=== PATIENT | female | born 1930 | race Two or more races ===

== ENCOUNTER → 2016-09-14 | Outpatient (CLI) | payer OTHER, MEDICAID ==
[~2016-09-14] MED LIST: ATEN-60 OR; BENA20TA4 OR; DONE5TAB11 OR; GLYB5TAB8 OR; ISOS60TA24 OR; LEVO50TA7 OR; METF500T OR; POTA10TA34 OR; RANO500T2 OR; SIMV-13 OR
[2016-09-14 07:41] LABS: Basophils # (auto) 0 uL; Basophils % (auto) 0.6 % (0.0-2.0); Eosinophils # (auto) 0.1 uL; Eosinophils % (auto) 1.5 % (0.0-7.0); Hematocrit 46.6 % (36.0-46.0); Hemoglobin 15.9 g/dL (12.2-16.2); Lymphocytes # (auto) 1.5 uL; Lymphocytes % (auto) 25.4 % (10.0-50.0); Mean Corpuscular Hemoglobin 31.4 pg (28.0-32.0); Mean Corpuscular Hgb Conc. 34.1 g/dL (32.0-36.0); Mean Corpuscular Volume 91.9 fL (80.0-100.0); Mean Platelet Volume 8.8 fL (7.4-10.4); Monocytes # (auto) 0.4 uL; Neutrophils # (auto) 3.8 uL; Neutrophils % (auto) 65.5 % (37.0-80.0); Platelet Count (auto) 216 10^3/uL (140-450); Red Cell Distribution Width 14.1 % (11.6-16.0); White Blood Cell 5.8 10^3/uL (4.4-10.8)
[2016-09-14 08:12] LABS: Urine Bilirubin Negative (Negative); Urine Blood Negative /uL (Negative); Urine Color Yellow (Yellow); Urine Glucose Normal (Normal); Urine Ketone Negative (Negative); Urine Nitrite Negative (Negative); Urine RBC 1 /hpf (0 - 4); Urine Squamous Epithelial Cell FEW /hpf (<5); Urine Urobilinogen Normal (Negative); Urine pH 6.5 (5.0-8.0)
[2016-09-14 08:14] LABS: Albumin 3.8 g/dL (3.4-5.0); Potassium 3.7 mmol/L (3.5-5.1); Total Protein 7.8 g/dL (6.4-8.2)
== END | disposition home or self-care (01) ==
LOC: LAB 06:54
PROVIDERS: ATTEND Internal Medicine
DX: E11.21 Type 2 diabetes mellitus with diabetic nephropathy (principal); I10 Essential (primary) hypertension; I48.2 Chronic atrial fibrillation
CPT/HCPCS: 36415; 80053; 80061; 81001; 82043; 82306; 83036; 84443; 85025

== ENCOUNTER → 2017-04-05 | Outpatient (CLI) | payer OTHER, MEDICAID ==
[~2017-04-05] MED LIST changes: +BENA20TA14 OR; -BENA20TA4 OR
[2017-04-05 07:27] LABS: Basophils # (auto) 0 uL; Basophils % (auto) 0.7 % (0.0-2.0); Eosinophils # (auto) 0.1 uL; Hematocrit 46.5 % (36.0-46.0); Hemoglobin 15.6 g/dL (12.2-16.2); Lymphocytes # (auto) 1.3 uL; Lymphocytes % (auto) 21.5 % (10.0-50.0); Mean Corpuscular Hemoglobin 31.2 pg (28.0-32.0); Mean Corpuscular Hgb Conc. 33.6 g/dL (32.0-36.0); Mean Corpuscular Volume 92.9 fL (80.0-100.0); Mean Platelet Volume 7.8 fL (6.9-10.8); Monocytes # (auto) 0.5 uL; Monocytes % (auto) 8.8 % (0.0-12.0); Neutrophils # (auto) 3.9 uL; Platelet Count (auto) 193 10^3/uL (140-450); Red Cell Distribution Width 14.1 % (11.8-14.3); White Blood Cell 5.8 10^3/uL (4.4-10.8)
[2017-04-05 08:45] LABS: Albumin 3.7 g/dL (3.4-5.0); BUN/Creatinine Ratio 16.5; Bilirubin, Total 0.9 mg/dL (0.2-1.0); Calcium 9.9 mg/dL (8.5-10.1); Potassium 4.7 mmol/L (3.5-5.1); Total Protein 7.5 g/dL (6.4-8.2)
== END | disposition home or self-care (01) ==
LOC: LAB 07:04
PROVIDERS: ATTEND Physician Assistant
DX: E03.9 Hypothyroidism, unspecified (principal); E78.2 Mixed hyperlipidemia; E55.9 Vitamin D deficiency, unspecified; F99 Mental disorder, not otherwise specified; R41.3 Other amnesia
CPT/HCPCS: 36415; 80053; 80061; 82306; 84439; 84443; 84480; 85025

== ENCOUNTER → 2017-04-12 | Outpatient (CLI) | payer OTHER, MEDICAID | END | disposition home or self-care (01) | LOC: LAB 08:09 | PROVIDERS: ATTEND Psychiatry & Neurology Neurology | DX: G30.9 Alzheimer's disease, unspecified (principal) | CPT/HCPCS: 82607; 82746 ==

== ENCOUNTER 2018-10-28 12:19 | Emergency (ER) | payer OTHER, MEDICAID ==
[~2018-10-28] VITALS: Ht 157.5 cm; Wt 59.0 kg
[~2018-10-28 12:19] MED LIST changes: -POTA10TA34 OR; +POTA1TAB61 OR
[2018-10-28 12:27] VITALS: BP 112/66
== END 2018-10-28 16:00 | disposition home or self-care (01) ==
LOC: ER 12:19
DX: S92.352A Displaced fracture of fifth metatarsal bone, left foot, initial encounter for closed fracture (principal); S82.831A Other fracture of upper and lower end of right fibula, initial encounter for closed fracture; M11.241 Other chondrocalcinosis, right hand; M18.9 Osteoarthritis of first carpometacarpal joint, unspecified; Z86.73 Personal history of transient ischemic attack (TIA), and cerebral infarction without residual deficits; E11.9 Type 2 diabetes mellitus without complications; E78.5 Hyperlipidemia, unspecified; I10 Essential (primary) hypertension; Z79.899 Other long term (current) drug therapy; W10.8XXA Fall (on) (from) other stairs and steps, initial encounter; Y93.89 Activity, other specified; Y92.098 Other place in other non-institutional residence as the place of occurrence of the external cause; Y99.8 Other external cause status
CPT/HCPCS: 29515; 73110; 73610; 73630; 93005

== ENCOUNTER 2018-11-26 08:07 | Inpatient (IN) | payer OTHER, MEDICAID ==
[~2018-11-26] VITALS: Ht 157.5 cm; Wt 54.4 kg
[2018-11-26 08:53] LABS: Basophils # (auto) 0 uL; Basophils % (auto) 0.8 % (0.0-2.0); Eosinophils # (auto) 0.1 uL; Eosinophils % (auto) 2.4 % (0.0-7.0); Lymphocytes # (auto) 1.4 uL; Mean Corpuscular Volume 94.1 fL (80.0-100.0); Monocytes # (auto) 0.4 uL; Monocytes % (auto) 7.5 % (0.0-12.0); Neutrophils # (auto) 3.3 uL; Neutrophils % (auto) 63.3 % (37.0-80.0); Nucleated Red Blood Cells % 0.1 %; Platelet Count (auto) 155 10^3/uL (140-450); Red Blood Cells 4.68 10^6/uL (4.0-5.20); Red Cell Distribution Width 14.2 % (11.8-14.3); White Blood Cell 5.2 10^3/uL (4.4-10.8)
[2018-11-26 09:21] LABS: Alanine Aminotransferase 10 U/L (13-56); Albumin 3.5 g/dL (3.4-5.0); Anion Gap 10 (5-15); Aspartate Aminotransferase 19 U/L (15-37); Blood Urea Nitrogen 17 mg/dL (7-18); Calcium 10.3 mg/dL (8.5-10.1); Carbon Dioxide 30 mmol/L (21-32); Chloride 101 mmol/L (98-107); GFR African American 58 mL/min; GFR Non-African American 48 mL/min; Glucose 121 mg/dL (74-106); Potassium 3.5 mmol/L (3.5-5.1); Sodium 141 mmol/L (136-145)
[2018-11-26 09:26] LABS: Alkaline Phosphatase 71 U/L (45-117); Bilirubin, Total 0.6 mg/dL (0.2-1.0); Total Protein 7.1 g/dL (6.4-8.2)
[2018-11-26 09:58] LABS: Urine Bacteria FEW /hpf (None Seen); Urine Blood TRACE /uL (Negative); Urine Hyaline Cast FEW /lpf (0 - 2); Urine Mucus FEW (None Seen); Urine Specific Gravity 1.021 (1.001-1.035); Urine WBC 179 /hpf (0 - 5)
[2018-11-26] MEDS ORDERED: hydrALAZINE HCL 20 MG/ML VL IV PRN (11:00)
[2018-11-26] MEDS ORDERED: MORPHINE SULF INJ 2 MG/ML SYRINGE 1ML IV PRN (11:00)
[2018-11-26] MEDS ORDERED: NITROGLYCERIN 0.4 MG SL TAB SL PRN (11:00)
[2018-11-26] MEDS ORDERED: DEXTROSE (50%) 50ML SYRG IV PRN (11:00)
[2018-11-26] MEDS ORDERED: FAMOTIDINE 20 MG TAB PO ONE (11:15)
[2018-11-26] MEDS ORDERED: SODIUM CHLORIDE 0.9% 1,000 ML IV ONE (11:15)
[2018-11-26] MEDS ORDERED: cefTRIAXone 1GM/50ML D5W 50 ML IV ONE (11:15)
[2018-11-26] MEDS ORDERED: LISINOPRIL 10 MG TAB PO ONE (11:15)
[2018-11-26] MEDS ORDERED: DOCUSATE SOD 100 MG CAP PO ONE (11:15)
[2018-11-26] MEDS ORDERED: ASPirin-EC 81 mg tab PO ONE (11:15)
[2018-11-26] MEDS ORDERED: LEVOTHYROXINE SODIUM 50 MCG TAB PO ONE (11:15)
[2018-11-26] MEDS ORDERED: POTASSIUM CHL 20 Meq TABLET PO ONE (12:00)
[2018-11-26] MEDS ORDERED: DOPamine 1600MCG/ML D5W 250 ML IV SCH (12:00)
[2018-11-26] MEDS: ACCU-CHEK COMFORT CURVE STRIP VI SCH ×3 (12:06→21:23)
[2018-11-26] MEDS: InsuLIN REG 1unit/0.01ml Soln (100units/ml) SC SCH ×3 (12:07→21:23)
[2018-11-26 17:20] VITALS: BP 139/72
[2018-11-26] MEDS: ATORVASTATIN 20 MG TAB PO SCH (21:19)
[2018-11-26] MEDS: DONEPEZIL HYDROCHLORIDE 5 MG TAB PO SCH (21:20)
[2018-11-26] MEDS: DOCUSATE SOD 100 MG CAP PO SCH (21:20)
[2018-11-26] MEDS: ACETAMINOPHEN 500 MG TAB PO PRN (21:21)
[2018-11-26 22:00] VITALS: BP 104/57
[2018-11-26] MEDS: HYDROcodone-ACET 5/325MG TAB PO PRN (22:10)
[2018-11-26 23:54] VITALS: BP 101/73
[2018-11-26] MEDS: ONDANSETRON HCL 4 MG/2 ML VIAL IV PRN (23:54)
[2018-11-27] VITALS (7 sets, daily range): BP systolic 90–146; BP diastolic 52–75
[2018-11-27 05:46] LABS: INR 1.04 (0.9-1.15); Partial Thromboplastin Time 26.4 sec (23.64-32.05)
[2018-11-27 05:47] LABS: Basophils # (auto) 0 uL; Basophils % (auto) 0.6 % (0.0-2.0); Eosinophils # (auto) 0 uL; Eosinophils % (auto) 0.4 % (0.0-7.0); Hematocrit 43.1 % (36.0-46.0); Hemoglobin 14.7 g/dL (12.2-16.2); Lymphocytes # (auto) 0.9 uL; Lymphocytes % (auto) 14.1 % (10.0-50.0); Mean Corpuscular Hemoglobin 31.9 pg (28.0-32.0); Mean Corpuscular Volume 93.6 fL (80.0-100.0); Monocytes # (auto) 0.5 uL; Monocytes % (auto) 8.2 % (0.0-12.0); Neutrophils # (auto) 4.8 uL; Neutrophils % (auto) 76.7 % (37.0-80.0); Nucleated Red Blood Cells % 0.1 %; Platelet Count (auto) 164 10^3/uL (140-450); Red Blood Cells 4.61 10^6/uL (4.0-5.20); Red Cell Distribution Width 14.1 % (11.8-14.3); White Blood Cell 6.3 10^3/uL (4.4-10.8)
[2018-11-27] MEDS: ACCU-CHEK COMFORT CURVE STRIP VI SCH ×4 (05:55→23:12)
[2018-11-27] MEDS: InsuLIN REG 1unit/0.01ml Soln (100units/ml) SC SCH ×4 (05:55→22:00)
[2018-11-27 06:09] LABS: Potassium 3.9 mmol/L (3.5-5.1)
[2018-11-27 06:11] LABS: BUN/Creatinine Ratio 13.8; Calcium 9.5 mg/dL (8.5-10.1)
[2018-11-27 06:22] LABS: Cholesterol 331 mg/dL (< 200); HDL Cholesterol 66 mg/dL (40-59); LDL Cholesterol 223 mg/dL (< 100); Triglycerides 144 mg/dL (< 150)
[2018-11-27] MEDS: DOPamine 1600MCG/ML D5W 250 ML IV SCH ×2 (07:05→14:52)
[2018-11-27] MEDS: cefTRIAXone 1GM/50ML D5W 50 ML IV SCH (09:36)
[2018-11-27] MEDS: ENOXAPARIN SOD 40 MG/0.4 ML SYRINGE SC SCH (09:36)
[2018-11-27] MEDS: LEVOTHYROXINE SODIUM 50 MCG TAB PO SCH (09:37)
[2018-11-27] MEDS: DOCUSATE SOD 100 MG CAP PO SCH ×2 (09:37→22:02)
[2018-11-27] MEDS: ASPirin-EC 81 mg tab PO SCH (09:37)
[2018-11-27] MEDS: FAMOTIDINE 20 MG TAB PO SCH (09:37)
[2018-11-27] MEDS ORDERED: ADENOSINE 44 MG in GIVE UN-DILUTED 0 ML IV STA ×2 (09:50→11:02)
[2018-11-27] MEDS: LISINOPRIL 10 MG TAB PO SCH (10:00)
[2018-11-27] MEDS ORDERED: DOBUTamine 1000MCG/ML 100 ML IV STA (10:02)
[2018-11-27] MEDS: DONEPEZIL HYDROCHLORIDE 5 MG TAB PO SCH (22:02)
[2018-11-27] MEDS: ATORVASTATIN 20 MG TAB PO SCH (22:03)
[2018-11-27] MEDS: ACETAMINOPHEN 500 MG TAB PO PRN (22:03)
[2018-11-27] MEDS: HYDROcodone-ACET 5/325MG TAB PO PRN (22:04)
[2018-11-27] MEDS: ONDANSETRON HCL 4 MG/2 ML VIAL IV PRN (22:04)
[2018-11-28 05:00] VITALS: BP 129/66
[2018-11-28] MEDS: InsuLIN REG 1unit/0.01ml Soln (100units/ml) SC SCH ×4 (06:15→21:14)
[2018-11-28] MEDS: ACCU-CHEK COMFORT CURVE STRIP VI SCH ×4 (06:15→21:09)
[2018-11-28 08:00] VITALS: BP 151/80
[2018-11-28] MEDS: DOCUSATE SOD 100 MG CAP PO SCH ×2 (10:00→21:09)
[2018-11-28] MEDS: ENOXAPARIN SOD 40 MG/0.4 ML SYRINGE SC SCH (10:00)
[2018-11-28] MEDS: cefTRIAXone 1GM/50ML D5W 50 ML IV SCH (10:00)
[2018-11-28] MEDS: LISINOPRIL 10 MG TAB PO SCH (10:01)
[2018-11-28] MEDS: LEVOTHYROXINE SODIUM 50 MCG TAB PO SCH (10:01)
[2018-11-28] MEDS: FAMOTIDINE 20 MG TAB PO SCH (10:01)
[2018-11-28] MEDS: ASPirin-EC 81 mg tab PO SCH (10:02)
[2018-11-28 11:04] LABS: Calcium 9.8 mg/dL (8.5-10.1); Potassium 3.7 mmol/L (3.5-5.1)
[2018-11-28 13:00] VITALS: BP 111/65
[2018-11-28 17:00] VITALS: BP 96/63
[2018-11-28] MEDS: DONEPEZIL HYDROCHLORIDE 5 MG TAB PO SCH (21:08)
[2018-11-28] MEDS: ATORVASTATIN 20 MG TAB PO SCH (21:08)
[2018-11-28] MEDS: ACETAMINOPHEN 500 MG TAB PO PRN (21:09)
[2018-11-28] MEDS: HYDROcodone-ACET 5/325MG TAB PO PRN (21:09)
[2018-11-28 22:00] VITALS: BP 124/83
[2018-11-29] MEDS: SODIUM CHLORIDE 0.9% 1,000 ML IV SCH
[2018-11-29] MEDS: DOPamine 1600MCG/ML D5W 250 ML IV SCH (02:02)
[2018-11-29 05:00] VITALS: BP 116/73
[2018-11-29] MEDS: InsuLIN REG 1unit/0.01ml Soln (100units/ml) SC SCH ×4 (05:50→21:44)
[2018-11-29] MEDS: ACCU-CHEK COMFORT CURVE STRIP VI SCH ×4 (05:51→21:22)
[2018-11-29 08:00] VITALS: BP 132/78
[2018-11-29] MEDS: HYDROcodone-ACET 5/325MG TAB PO PRN ×2 (09:35→16:44)
[2018-11-29] MEDS: cefTRIAXone 1GM/50ML D5W 50 ML IV SCH (09:53)
[2018-11-29] MEDS: FAMOTIDINE 20 MG TAB PO SCH (09:54)
[2018-11-29] MEDS: ASPirin-EC 81 mg tab PO SCH (09:54)
[2018-11-29] MEDS: DOCUSATE SOD 100 MG CAP PO SCH ×2 (09:55→21:21)
[2018-11-29] MEDS: LISINOPRIL 10 MG TAB PO SCH (09:55)
[2018-11-29] MEDS: LEVOTHYROXINE SODIUM 50 MCG TAB PO SCH (09:55)
[2018-11-29] MEDS: ENOXAPARIN SOD 40 MG/0.4 ML SYRINGE SC SCH (09:55)
[2018-11-29 13:00] VITALS: BP 112/73
[2018-11-29 17:00] VITALS: BP 130/70
[2018-11-29] MEDS: TEMAZEPAM 15 MG CAP PO PRN (21:21)
[2018-11-29] MEDS: DONEPEZIL HYDROCHLORIDE 5 MG TAB PO SCH (21:22)
[2018-11-29] MEDS: ATORVASTATIN 20 MG TAB PO SCH (21:22)
[2018-11-29 21:46] VITALS: BP 117/74
[2018-11-30] VITALS (7 sets, daily range): BP systolic 111–145; BP diastolic 59–84
[2018-11-30] MEDS: DOPamine 1600MCG/ML D5W 250 ML IV SCH (03:09)
[2018-11-30] MEDS: InsuLIN REG 1unit/0.01ml Soln (100units/ml) SC SCH ×4 (06:22→22:00)
[2018-11-30] MEDS: ACCU-CHEK COMFORT CURVE STRIP VI SCH ×4 (06:23→22:00)
[2018-11-30] MEDS: SODIUM CHLORIDE 0.9% 1,000 ML IV SCH ×2 (07:43→23:15)
[2018-11-30] MEDS ORDERED: cefTRIAXone 1GM/50ML D5W 50 ML IV SCH (09:00)
[2018-11-30] MEDS: HYDROcodone-ACET 5/325MG TAB PO PRN (10:00)
[2018-11-30] MEDS: ENOXAPARIN SOD 40 MG/0.4 ML SYRINGE SC SCH (10:00)
[2018-11-30] MEDS: ASPirin-EC 81 mg tab PO SCH (10:27)
[2018-11-30] MEDS: DOCUSATE SOD 100 MG CAP PO SCH ×2 (10:27→23:07)
[2018-11-30] MEDS: LISINOPRIL 10 MG TAB PO SCH (10:28)
[2018-11-30] MEDS: FAMOTIDINE 20 MG TAB PO SCH (10:28)
[2018-11-30] MEDS: LEVOTHYROXINE SODIUM 50 MCG TAB PO SCH (10:28)
[2018-11-30] MEDS: ONDANSETRON HCL 4 MG/2 ML VIAL IV PRN (13:08)
[2018-11-30] MEDS ORDERED: IOHEXOL 350 MG/ML 100ML IJ ONE (14:55)
[2018-11-30] MEDS ORDERED: LIDOCAINE 2%HCL (LOCAL ANESTH.) INJ 20ML MDV ONE (14:55)
[2018-11-30] MEDS ORDERED: ANGIOMAX 250 MG VIAL IV ONE (15:01)
[2018-11-30] MEDS ORDERED: SODIUM CHL 0.9% 50 ML ONE (15:01)
[2018-11-30] MEDS ORDERED: MIDAZOLAM HCL 1MG/1ML-2 ML VIAL ONE (15:01)
[2018-11-30] MEDS ORDERED: fentaNYL CITRATE 100 MCG/2 ML VL ONE (15:01)
[2018-11-30] MEDS ORDERED: IODIXANOL 320MG/ML 100ML BTL IV ONE (15:03)
[2018-11-30] MEDS ORDERED: CLOPIDOGREL 300 MG TAB ONE (15:38)
[2018-11-30 16:47] LABS: Basophils # (auto) 0.1 uL; Basophils % (auto) 0.9 % (0.0-2.0); Eosinophils # (auto) 0.1 uL; Eosinophils % (auto) 1.8 % (0.0-7.0); Hematocrit 45.6 % (36.0-46.0); Hemoglobin 15.6 g/dL (12.2-16.2); Lymphocytes # (auto) 1.3 uL; Lymphocytes % (auto) 24.4 % (10.0-50.0); Mean Corpuscular Hgb Conc. 34.1 g/dL (32.0-36.0); Mean Corpuscular Volume 93.9 fL (80.0-100.0); Monocytes # (auto) 0.4 uL; Neutrophils # (auto) 3.5 uL; Neutrophils % (auto) 64.9 % (37.0-80.0); Nucleated Red Blood Cells % 0.1 %; Platelet Count (auto) 173 10^3/uL (140-450); Red Blood Cells 4.86 10^6/uL (4.0-5.20); Red Cell Distribution Width 14.2 % (11.8-14.3); White Blood Cell 5.3 10^3/uL (4.4-10.8)
[2018-11-30 17:08] LABS: INR 1.43 (0.9-1.15); Partial Thromboplastin Time 61.9 sec (23.64-32.05)
[2018-11-30 17:09] LABS: BUN/Creatinine Ratio 23.4; Calcium 9.1 mg/dL (8.5-10.1); Potassium 3.7 mmol/L (3.5-5.1)
[2018-11-30] MEDS: TEMAZEPAM 15 MG CAP PO PRN (23:06)
[2018-11-30] MEDS: ATORVASTATIN 20 MG TAB PO SCH (23:06)
[2018-11-30] MEDS: DONEPEZIL HYDROCHLORIDE 5 MG TAB PO SCH (23:06)
[2018-12-01 05:00] VITALS: BP 116/74
[2018-12-01] MEDS: InsuLIN REG 1unit/0.01ml Soln (100units/ml) SC SCH ×4 (06:42→21:42)
[2018-12-01 09:00] VITALS: BP 102/70
[2018-12-01] MEDS: DOPamine 1600MCG/ML D5W 250 ML IV SCH (09:18)
[2018-12-01] MEDS: FAMOTIDINE 20 MG TAB PO SCH (09:19)
[2018-12-01] MEDS: ASPirin-EC 81 mg tab PO SCH (09:19)
[2018-12-01] MEDS: DOCUSATE SOD 100 MG CAP PO SCH ×2 (09:19→21:41)
[2018-12-01] MEDS: LEVOTHYROXINE SODIUM 50 MCG TAB PO SCH (09:19)
[2018-12-01] MEDS: CLOPIDOGREL BISULFATE 75 MG TAB PO SCH (09:23)
[2018-12-01] MEDS: LISINOPRIL 10 MG TAB PO SCH (09:24)
[2018-12-01] MEDS: ACCU-CHEK COMFORT CURVE STRIP VI SCH ×4 (11:49→21:42)
[2018-12-01 13:00] VITALS: BP 112/68
[2018-12-01] MEDS: HYDROcodone-ACET 5/325MG TAB PO PRN (15:09)
[2018-12-01 17:00] VITALS: BP 108/68
[2018-12-01] MEDS: SODIUM CHLORIDE 0.9% 1,000 ML IV SCH (17:37)
[2018-12-01] MEDS: DONEPEZIL HYDROCHLORIDE 5 MG TAB PO SCH (21:41)
[2018-12-01] MEDS: ATORVASTATIN 20 MG TAB PO SCH (21:42)
[2018-12-01 22:00] VITALS: BP 104/63
[2018-12-02 05:22] VITALS: BP 102/57
[2018-12-02] MEDS: InsuLIN REG 1unit/0.01ml Soln (100units/ml) SC SCH ×2 (06:34→11:32)
[2018-12-02] MEDS: ACCU-CHEK COMFORT CURVE STRIP VI SCH ×2 (06:35→11:11)
[2018-12-02] MEDS: DOPamine 1600MCG/ML D5W 250 ML IV SCH (08:17)
[2018-12-02 09:00] VITALS: BP 100/78
[2018-12-02] MEDS: ASPirin-EC 81 mg tab PO SCH (11:10)
[2018-12-02] MEDS: CLOPIDOGREL BISULFATE 75 MG TAB PO SCH (11:10)
[2018-12-02] MEDS: DOCUSATE SOD 100 MG CAP PO SCH (11:10)
[2018-12-02] MEDS: LISINOPRIL 10 MG TAB PO SCH (11:11)
[2018-12-02] MEDS: LEVOTHYROXINE SODIUM 50 MCG TAB PO SCH (11:11)
[2018-12-02] MEDS: FAMOTIDINE 20 MG TAB PO SCH (11:11)
[2018-12-02] MEDS: SODIUM CHLORIDE 0.9% 1,000 ML IV SCH (12:47)
[2018-12-02 13:00] VITALS: BP 106/56
[2018-12-02] MEDS ORDERED: HYDROcodone-ACET 5/325MG TAB PO PRN (13:15)
[2018-12-02] MEDS ORDERED: CLOP75TA28 PO (13:25)
[2018-12-02] MEDS ORDERED: BENA20TA14 OR (13:25)
[2018-12-02] MEDS ORDERED: ASP81EC PO (13:25)
[2018-12-02] MEDS ORDERED: ATOR20TA50 PO (13:25)
[2018-12-02] MEDS ORDERED: MORPHINE SULF INJ 2 MG/ML SYRINGE 1ML IV PRN (13:30)
[2018-12-02 14:09] VITALS: BP 100/78
== END 2018-12-02 16:05 | disposition home or self-care (01) | DRG 247 ==
LOC: ER 08:11 → TELE 08:12 → TELE-WESTW 17:08
PROVIDERS: ADMIT Nurse Practitioner Acute Care; ATTEND Internal Medicine
PROC: 027034Z Dilation of Coronary Artery, One Artery with Drug-eluting Intraluminal Device, Percutaneous Approach (ICD-10-PCS; principal; 2018-11-30)
PROC: 4A023N7 Measurement of Cardiac Sampling and Pressure, Left Heart, Percutaneous Approach (ICD-10-PCS; 2018-11-30)
PROC: B2111ZZ Fluoroscopy of Multiple Coronary Arteries using Low Osmolar Contrast (ICD-10-PCS; 2018-11-30)
PROC: B2151ZZ Fluoroscopy of Left Heart using Low Osmolar Contrast (ICD-10-PCS; 2018-11-30)
PROC: B240ZZ3 Ultrasonography of Single Coronary Artery, Intravascular (ICD-10-PCS; 2018-11-30)
DX: I21.4 Non-ST elevation (NSTEMI) myocardial infarction (principal); N39.0 Urinary tract infection, site not specified; N18.3 Chronic kidney disease, stage 3 (moderate); E03.9 Hypothyroidism, unspecified; E11.22 Type 2 diabetes mellitus with diabetic chronic kidney disease; E78.5 Hyperlipidemia, unspecified; E83.52 Hypercalcemia; F03.90 Unspecified dementia, unspecified severity, without behavioral disturbance, psychotic disturbance, mood disturbance, and anxiety; I12.9 Hypertensive chronic kidney disease with stage 1 through stage 4 chronic kidney disease, or unspecified chronic kidney disease; I25.10 Atherosclerotic heart disease of native coronary artery without angina pectoris; I45.10 Unspecified right bundle-branch block; I48.91 Unspecified atrial fibrillation; I49.5 Sick sinus syndrome; I70.0 Atherosclerosis of aorta; K44.9 Diaphragmatic hernia without obstruction or gangrene; S82.401A Unspecified fracture of shaft of right fibula, initial encounter for closed fracture; W18.39XA Other fall on same level, initial encounter; Z79.02 Long term (current) use of antithrombotics/antiplatelets; Z79.84 Long term (current) use of oral hypoglycemic drugs; Z79.899 Other long term (current) drug therapy; Z82.49 Family history of ischemic heart disease and other diseases of the circulatory system; Z83.3 Family history of diabetes mellitus; Z86.73 Personal history of transient ischemic attack (TIA), and cerebral infarction without residual deficits; Z90.710 Acquired absence of both cervix and uterus; Z90.49 Acquired absence of other specified parts of digestive tract; Y93.89 Activity, other specified; Y92.89 Other specified places as the place of occurrence of the external cause; Y99.8 Other external cause status; Z79.82 Long term (current) use of aspirin
CPT/HCPCS: 36415; 71045; 74176; 78452; 80048; 80053; 80061; 81001; 82962; 83036; 83735; 84443; 84484; 85025; 85610; 85730; 86141; 86850; 86900; 86901; 87086; 92928; 92978; 93005; 93017; 93306; 93458; 93886; 96365; 99152; 99153; C1874; G0378; J0153; J0696; J1815; J2250; J2405; Q9967

== ENCOUNTER → 2019-01-11 | Outpatient (CLI) | payer OTHER, MEDICAID, MEDICARE ==
[~2019-01-11] MED LIST changes: +ASP81EC PO; -ATEN-60 OR; +ATOR20TA50 PO; +CLOP75TA28 PO; +IOHEXOL 350 MG/ML 100ML IJ ONE; -SIMV-13 OR
[2019-01-11 10:10] VITALS: BP 108/58
--- NOTE | 2019-01-11 10:15 | NUR ---
IV insertion IV access obtained, via clean sterile technique by inserting 20 gauge catheter at LAC after 1 attempt(s). IV secured properly. No trauma to site. Patient tolerated procedure well. STAT LABS SENT.
--- NOTE | 2019-01-11 11:25 | NUR ---
IV removal IV DC'd with sterile technique, catheter fully intact. Pressure dressing applied to site. Patient tolerated procedure well.
[2019-01-11 11:30] VITALS: BP 144/72
--- NOTE | 2019-01-11 11:30 | NUR ---
[facility] Discharge Instructions See e-MAR for any mediations given with this visit. Patient education given on disease process. Patient verbalized understanding. Previous labs reviewed. Patient discharged in stable condition with after care instructions and follow up appointment. NOTE PATIENT EDUCATED TO DRINK PLENTY OF FLUIDS OVER THE NEXT 24 HRS, HOLD METFORMIN FOR THE NEXT 48HRS, PATIENT VERBALIZED UNDERSTANDING.
== END | disposition home or self-care (01) ==
LOC: Rad HDHVI 09:49
PROVIDERS: ATTEND Internal Medicine Cardiovascular Disease
DX: I25.119 Atherosclerotic heart disease of native coronary artery with unspecified angina pectoris (principal); R94.4 Abnormal results of kidney function studies; Z95.5 Presence of coronary angioplasty implant and graft
CPT/HCPCS: 36415; 71275; 82565; 93306; G0463; Q9967

== ENCOUNTER → 2020-05-15 | Outpatient (CLI) | payer OTHER, MEDICAID, MEDICARE ==
[~2020-05-15] MED LIST changes: -ASP81EC PO; +ASPI-394 PO; -IOHEXOL 350 MG/ML 100ML IJ ONE
[2020-05-15 12:30] LABS: Basophils # (auto) 0 10 ^3/uL (0-0.2); Basophils % (auto) 0.5 % (0.0-2.0); Eosinophils # (auto) 0.1 10 ^3/uL (0-0.8); Eosinophils % (auto) 2.3 % (0.0-7.0); Hematocrit 38.8 % (36.0-46.0); Hemoglobin 13.2 g/dL (12.2-16.2); Lymphocytes # (auto) 0.9 10 ^3/uL (0.4-5.4); Lymphocytes % (auto) 22.1 % (10.0-50.0); Mean Corpuscular Hemoglobin 33.3 pg (28.0-32.0); Mean Corpuscular Hgb Conc. 34.1 g/dL (32.0-36.0); Mean Corpuscular Volume 97.5 fL (80.0-100.0); Monocytes # (auto) 0.4 10 ^3/uL (0-1.3); Monocytes % (auto) 8.8 % (0.0-12.0); Neutrophils # (auto) 2.8 10 ^3/uL (1.6-8.6); Neutrophils % (auto) 66.3 % (37.0-80.0); Platelet Count (auto) 185 10^3/uL (140-450); Red Blood Cells 3.97 10^6/uL (4.0-5.20); Red Cell Distribution Width 13.8 % (11.8-14.3); White Blood Cell 4.3 10^3/uL (4.4-10.8)
[2020-05-15 13:13] LABS: Albumin 3.2 g/dL (3.4-5.0); Potassium 4.3 mmol/L (3.5-5.1)
[2020-05-15 13:20] LABS: BUN/Creatinine Ratio 28.6; Bilirubin, Total 0.5 mg/dL (0.2-1.0); Calcium 9.9 mg/dL (8.5-10.1); Total Protein 6.8 g/dL (6.4-8.2)
== END | disposition home or self-care (01) ==
LOC: LAB 11:35
PROVIDERS: ATTEND Physician Assistant
DX: E11.22 Type 2 diabetes mellitus with diabetic chronic kidney disease (principal); N18.30 Chronic kidney disease, stage 3 unspecified; E11.3319 Type 2 diabetes mellitus with moderate nonproliferative diabetic retinopathy with macular edema, unspecified eye; M06.9 Rheumatoid arthritis, unspecified
CPT/HCPCS: 36415; 80053; 80061; 82043; 83036; 85025